=== PATIENT | male | born 1940 | race Caucasian/White ===

== ENCOUNTER 2017-07-07 10:09 | Emergency (ER) | payer OTHER ==
[~2017-07-07] VITALS: Ht 193 cm; Wt 99.8 kg
--- NOTE | 2017-07-07 10:34 | PHYS DOC ---
Adult General Chief Complaint Chief Complaint: ABSCESS HPI HPI Patient is a 76 year old male presents to the emergency department with complaints of right knee pain. Patient had right knee pain for 3 days. Patient states he was seen yesterday at the radiology of [place] where he had an ultrasound. It was reported that he has "a big acres cyst". Patient states he spoke with his primary care provider who referred him to orthopedics. Patient's states she called the orthopedic office yesterday evening and was unsuccessful in speaking with anyone. She reports today the patient has inability to stand secondary to pain and they're here seeking further evaluation. Review of Systems Review of Systems Constitutional: Denies fever or chills [] Eyes: Denies change in visual acuity, redness, or eye pain [] HENT: Denies nasal congestion or sore throat [] Respiratory: Denies cough or shortness of breath [] Cardiovascular: No additional information not addressed in HPI [] GI: Denies abdominal pain, nausea, vomiting, bloody stools or diarrhea [] : Denies dysuria or hematuria [] Musculoskeletal: Right knee pain Integument: Denies rash or skin lesions [] Neurologic: Denies headache, focal weakness or sensory changes [] Endocrine: Denies polyuria or polydipsia [] All other systems were reviewed and found to be within normal limits, except as documented in this note. Allergies Allergies Allergies Coded Allergies Type Severity Reaction Last Updated Verified morphine Adverse Reaction Intermediate severe vomiting 07/07/17 Yes Physical Exam Physical Exam Constitutional: Well developed, well nourished, no acute distress, non-toxic appearance. [] Neck: Normal range of motion, no tenderness, supple, no stridor. [] Cardiovascular:Heart rate regular rhythm, no murmur [] Lungs & Thorax: Bilateral breath sounds clear to auscultation [] Skin: Warm, dry, no erythema, no rash. [] Extremities: Right lower extremity: Right knee mild diffuse swelling, tender palpate posteriorly.No erythema, no warmth. Patient will allow for passive range of motion however he does have increase pain. Right hip right ankle exam unremarkable. Neurovascular intact distal. Neurologic: Alert and oriented X 3, normal motor function, normal sensory function, no focal deficits noted. [] Current Patient Data Vital Signs Vital Signs Date Time Temp Pulse Resp B/P (MAP) Pulse Ox O2 Delivery O2 Flow Rate FiO2 07/07/17 10:10 98.1 70 18 97 Room Air 98.1 EKG EKG [] Radiology/Procedures Radiology/Procedures [][facility] [address] [place] [address] IMAGING REPORT Signed PATIENT: GALO BOLANOS ACCOUNT: [id number] : 1940 LOCATION: ER AGE: 76 SEX: M EXAM STATUS: REG ER ORD. PHYSICIAN: MOLINA FRANKLIN APRN REASON: pain and swelling posterior knee PROCEDURE: VENOUS LOWER EXTREMITY RIGHT Indication: Pain and swelling to the right lower extremity. Grayscale, color-flow and duplex Doppler evaluation of the right lower extremity deep venous system was performed. There is no evidence of a right lower extremity DVT. The right lower extremity deep venous system demonstrates normal compressibility with normal response to augmentation and Valsalva. There does appear to be a popliteal cyst measuring 5.6 x 2.3 x 3.1 cm. Impression: 1. No evidence of right lower extremity DVT. Note is made of a popliteal cyst. DICTATED and SIGNED BY: FLAKITO DURAND MD DATE: 07/07/17 1110 CC: NON,STAFF; DAVID MONTANO MD; MOLINA FRANKLIN APRN ~ Course & Med Decision Making Course & Med Decision Making Pertinent Labs and Imaging studies reviewed. (See chart for details) []1120: Patient's case discussed with Dr. Babcock, on-call ortho. He recommends follow-up in the office for continued treatment of the chronic knee pain Dragon Disclaimer Dragon Disclaimer This electronic medical record was generated, in whole or in part, using a voice recognition dictation system. Departure Departure Impression: Primary Impression: Knee pain, chronic Additional Impression: Estrada's cyst of knee Disposition: 01 HOME, SELF-CARE Condition: STABLE Referrals: DAVID MONTANO MD (PCP) Patient Instructions: Knee Pain Additional Instructions: Use the walker for assistance with ambulation. Tylenol with codeine one tablet by mouth every 6 hours as needed for pain. Please follow-up with your orthopedic physician, call today Scripts Acetaminophen With Codeine (TYLENOL WITH CODEINE #3 TABLET) 1 Each Tablet 1 TAB PO PRN Q6HRS Y for PAIN, #20 TAB Prov: MOLINA FRANKLIN APRN 07/07/17 Problem Qualifiers Primary Impression: Knee pain, chronic Laterality: right Qualified Codes: M25.561 - Pain in right knee; G89.29 - Other chronic pain Additional Impression: Estrada's cyst of knee Laterality: right Qualified Codes: M71.21 - Synovial cyst of popliteal space [Estrada], right knee MOLINA FRANKLIN RUBY DEVELOPER Jul 07, 2017 10:34
--- NOTE | 2017-07-07 11:15 | RAD ---
Indication: Pain and swelling to the right lower extremity. Grayscale, color-flow and duplex Doppler evaluation of the right lower extremity deep venous system was performed. There is no evidence of a right lower extremity DVT. The right lower extremity deep venous system demonstrates normal compressibility with normal response to augmentation and Valsalva. There does appear to be a popliteal cyst measuring 5.6 x 2.3 x 3.1 cm. Impression: 1. No evidence of right lower extremity DVT. Note is made of a popliteal cyst.
[2017-07-07] MEDS ORDERED: ACET-704 PO (11:47)
[2017-07-07 11:50] VITALS: BP 128/62
== END 2017-07-07 12:10 | disposition home or self-care (01) ==
LOC: ER 10:09
DX: M71.21 Synovial cyst of popliteal space [Baker], right knee (principal); G89.29 Other chronic pain; Z88.5 Allergy status to narcotic agent
CPT/HCPCS: 93971; 99284-25

== ENCOUNTER → 2017-08-01 | Outpatient (CLI) | payer OTHER ==
[2017-08-01 10:01] LABS: ADD MAN DIFF? NO
[2017-08-01 10:11] LABS: BASO # 0.1 x10^3/uL (0.0-0.2); BASO % 1 % (0-3); EOS # 0.1 x10^3/uL (0.0-0.7); EOS % 1 % (0-3); HEMATOCRIT 39.8 % (39.0-53.0); HEMOGLOBIN 12.8 g/dL (13.0-17.5); LYMPH % 25 % (24-48); MEAN CORPUSCULAR HEMOGLOBIN 32 pg (25-35); MEAN CORPUSCULAR HGB CONC 32 g/dL (31-37); MEAN CORPUSCULAR VOLUME 99 fL (79-100); MONO # 1.2 x10^3/uL (0.0-1.1); MONO % 11 % (0-9); NEUT # 7.5 x10^3uL (1.8-7.7); NEUT % 63 % (31-73); PLATELET COUNT 226 x10^3/uL (140-400); RED BLOOD COUNT 4.04 x10^6/uL (4.30-5.70); RED CELL DISTRIBUTION WIDTH 14.5 % (11.5-14.5); WHITE BLOOD COUNT 11.9 x10^3/uL (4.0-11.0)
[2017-08-01 10:20] LABS: INR 3.2 (0.8-1.1); PARTIAL THROMBOPLASTIN TIME 37 SEC (24-38); PROTHROMBIN TIME PATIENT 30.6 SEC (11.7-14.0)
[2017-08-01 10:23] LABS: ALBUMIN 4.1 g/dL (3.4-5.0); ANION GAP 10 (6-14); BLOOD UREA NITROGEN 23 mg/dL (8-26); CARBON DIOXIDE 29 mmol/L (21-32); CHLORIDE 103 mmol/L (98-107); CREATININE 1.5 mg/dL (0.7-1.3); GFR 45.3; GLUCOSE 102 mg/dL (70-99); POTASSIUM 4.4 mmol/L (3.5-5.1); SODIUM 142 mmol/L (136-145)
[2017-08-01 11:12] LABS: SEDIMENTATION RATE 12 (0-15)
[2017-08-01 11:33] LABS: BILIRUBIN,URINE NEGATIVE (NEG); CLARITY,URINE CLEAR; COLOR,URINE YELLOW; GLUCOSE,URINE 100 mg/dL (NEG); NITRITE,URINE NEGATIVE (NEG); PROTEIN,URINE NEGATIVE (NEG-TRACE); UROBILINOGEN,URINE 0.2 mg/dL (0.2 mg/dL)
[2017-08-01 11:47] LABS: BACTERIA,URINE FEW /HPF (0-FEW); HYALINE CASTS, URINE OCCASIONAL /HPF; RBC,URINE 0 /HPF (0-2); SQUAMOUS EPITHELIAL CELL,UR FEW /LPF
[2017-08-02 00:12] LABS: MRSA BY PCR Negative (Negative)
== END | disposition home or self-care (01) ==
LOC: SURGPAT 14:13
DX: Z01.818 Encounter for other preprocedural examination (principal); I10 Essential (primary) hypertension; Z96.651 Presence of right artificial knee joint
CPT/HCPCS: 36415; 71046; 80048; 81001; 82040; 82306; 85025; 85610; 85651; 85730; 87641

== ENCOUNTER 2017-08-16 08:43 | Inpatient (IN) | payer OTHER ==
[2017-08-16] MEDS: TRANEXAMIC ACID 1,000 MG in IV NS 50ML -- 2ND BAG INJ (08:00)
[~2017-08-16 08:43] MED LIST: LIDOCAINE 1% PF 2 ML VIAL. ID; ONDANSETRON PF 4 MG/2 ML VIAL. IV; PROCHLORPERAZINE 10 MG/2 ML VIAL. IV; fentaNYL PF VIAL 100 MCG/2 ML VIAL IV
[2017-08-16] MEDS: IV RINGERS,LACTATED 1000ML 1,000 ML IV (09:25)
[2017-08-16] MEDS: ACETAMINOPHEN 500 MG TABLET PO (09:26)
[2017-08-16 09:52] LABS: INR 1.6 (0.8-1.1); PROTHROMBIN TIME PATIENT 17.8 SEC (11.7-14.0)
[2017-08-16] MEDS ORDERED: fentaNYL PF VIAL 100 MCG/2 ML VIAL (10:22)
[2017-08-16] MEDS ORDERED: PHENYLEPHRINE in 0.9% NACL PF 1 MG/10 ML SYRINGE. IV (10:24)
[2017-08-16] MEDS ORDERED: DEXAMETHASONE SOD PHOS 20 MG/5 ML VIAL. (10:24)
[2017-08-16] MEDS ORDERED: FAMOTIDINE 20 MG/2 ML VIAL (10:24)
[2017-08-16] MEDS ORDERED: PROPOFOL 20 ML IV (10:24)
[2017-08-16] MEDS ORDERED: ONDANSETRON PF 4 MG/2 ML VIAL. (10:24)
[2017-08-16] MEDS ORDERED: SEVOFLURANE 61 TO 120 MINUTES. IH (10:24)
[2017-08-16] MEDS ORDERED: LIDOCAINE 1% PF 5 ML VIAL. (10:24)
[2017-08-16] MEDS: TRANEXAMIC ACID 1,000 MG in IV NS 50ML -- 1ST BAG INJ (11:35)
[2017-08-16] MEDS: TOBRAMYCIN POWDER 1.2 GM VIAL. (11:50)
[2017-08-16] MEDS: MORPHINE SULFATE 5 MG, KETOROLAC 30 MG, ROPIVacaine 0.5% PF 60 ML, EPINEPHrine 0.5 MG i... INT ART (11:50)
[2017-08-16] MEDS: VANCOMYCIN 1 GM VIAL. (11:50)
[2017-08-16] MEDS ORDERED: KETOROLAC 30 MG/ML INJ FOR OR. INJ (12:37)
[2017-08-16] MEDS ORDERED: traMADol 50 MG TABLET PO ×2 (13:30)
[2017-08-16] MEDS ORDERED: diphenhydrAMINE 50 MG/ML VIAL IV (13:30)
[2017-08-16] MEDS ORDERED: PROCHLORPERAZINE 5 MG TABLET. PO (13:30)
[2017-08-16] MEDS ORDERED: ZOLPIDEM 5 MG TABLET. PO (13:30)
[2017-08-16] MEDS ORDERED: DEXTROSE 50% 25 GM / 50ML DISP.SYRIN. IV (13:30)
[2017-08-16] MEDS ORDERED: fentaNYL PF VIAL 100 MCG/2 ML VIAL IV ×2 (13:30)
[2017-08-16] MEDS ORDERED: oxyCODONE/APAP 5/325 1 TAB TABLET PO (13:30)
[2017-08-16] MEDS ORDERED: PROCHLORPERAZINE 10 MG/2 ML VIAL. IV (13:30)
[2017-08-16] MEDS ORDERED: ACETAMINOPHEN 325 MG TABLET. PO (13:30)
[2017-08-16] MEDS ORDERED: METOCLOPRAMIDE HCL 10 MG/2 ML VIAL. IV (13:30)
[2017-08-16] MEDS ORDERED: oxyCODONE/APAP 7.5/325 1 TAB TABLET PO (13:30)
[2017-08-16] MEDS: fentaNYL PF VIAL 100 MCG/2 ML VIAL IV ×2 (14:17→15:49)
[2017-08-16] MEDS: WARFARIN 4 MG TABLET. PO (16:57)
[2017-08-16] MEDS: IV DEXTROSE 5 %-0.45 % NACL 1,000 ML IV ×2 (16:57→23:28)
[2017-08-16] MEDS: FERROUS SULFATE 325 MG TABLET. PO (16:58)
[2017-08-16] MEDS: KETOROLAC 30 MG, BUPIVACAINE MPF 0.25% 20 ML, EPINEPHrine 0.5 MG in TOTAL VOLUME SYRING... INT ART (18:39)
[2017-08-16] MEDS: CELECOXIB 200 MG CAPSULE. PO (20:45)
[2017-08-16] MEDS: ATORVASTATIN CALCIUM 20 MG TABLET PO (20:45)
[2017-08-16] MEDS: NIACIN ER 500 MG TABLET.ER PO (20:46)
[2017-08-16] MEDS: METOPROLOL TART IMMED RELEASE 25 MG TABLET. PO (20:46)
[2017-08-17] MEDS: KETOROLAC 30 MG, BUPIVACAINE MPF 0.25% 20 ML, EPINEPHrine 0.5 MG in TOTAL VOLUME SYRING... INT ART (05:04)
[2017-08-17 05:51] LABS: HEMATOCRIT 29.5 % (39.0-53.0); HEMOGLOBIN 9.8 g/dL (13.0-17.5); MEAN CORPUSCULAR HEMOGLOBIN 32 pg (25-35); MEAN CORPUSCULAR HGB CONC 33 g/dL (31-37); MEAN CORPUSCULAR VOLUME 96 fL (79-100); PLATELET COUNT 159 x10^3/uL (140-400); RED BLOOD COUNT 3.09 x10^6/uL (4.30-5.70); RED CELL DISTRIBUTION WIDTH 13.6 % (11.5-14.5); WHITE BLOOD COUNT 17.6 x10^3/uL (4.0-11.0)
[2017-08-17] MEDS ORDERED: MAGNESIUM HYDROXIDE 2,400 MG/30 ML ORAL.SUSP. PO (06:00)
[2017-08-17 06:03] LABS: INR 1.6 (0.8-1.1); PROTHROMBIN TIME PATIENT 17.8 SEC (11.7-14.0)
[2017-08-17] MEDS: MULTIVITAMIN with MINERAL TABLET. PO (07:56)
[2017-08-17] MEDS: CELECOXIB 200 MG CAPSULE. PO ×2 (07:56→20:59)
[2017-08-17] MEDS: FERROUS SULFATE 325 MG TABLET. PO ×2 (07:56→17:02)
[2017-08-17] MEDS: SENNOSIDES/DOCUSATE 8.6/50MG TABLET. PO (07:57)
[2017-08-17] MEDS: METOPROLOL TART IMMED RELEASE 25 MG TABLET. PO ×2 (07:59→20:59)
[2017-08-17] MEDS: HYDROcodone/APAP 7.5/325MG 1 TAB TABLET PO ×3 (08:00→21:05)
[2017-08-17] MEDS ORDERED: BISACODYL 10 MG SUPP.RECT. PR (16:00)
[2017-08-17] MEDS: WARFARIN 4 MG TABLET. PO (17:02)
[2017-08-17] MEDS: 0.9 % SODIUM CHLORIDE 10 ML DISP.SYRIN. IV (20:58)
[2017-08-17] MEDS: NIACIN ER 500 MG TABLET.ER PO (20:59)
[2017-08-17] MEDS: ATORVASTATIN CALCIUM 20 MG TABLET PO (20:59)
[2017-08-18] MEDS: HYDROcodone/APAP 7.5/325MG 1 TAB TABLET PO ×4 (04:03→21:00)
[2017-08-18 05:32] LABS: HEMATOCRIT 26.9 % (39.0-53.0); HEMOGLOBIN 8.8 g/dL (13.0-17.5); MEAN CORPUSCULAR HGB CONC 33 g/dL (31-37)
[2017-08-18 05:40] LABS: INR 2.1 (0.8-1.1); PROTHROMBIN TIME PATIENT 22.1 SEC (11.7-14.0)
[2017-08-18] MEDS: SENNOSIDES/DOCUSATE 8.6/50MG TABLET. PO (08:05)
[2017-08-18] MEDS: CELECOXIB 200 MG CAPSULE. PO ×2 (08:05→21:00)
[2017-08-18] MEDS: FERROUS SULFATE 325 MG TABLET. PO ×2 (08:05→17:03)
[2017-08-18] MEDS: METOPROLOL TART IMMED RELEASE 25 MG TABLET. PO ×2 (08:05→21:00)
[2017-08-18] MEDS: MULTIVITAMIN with MINERAL TABLET. PO (08:07)
[2017-08-18] MEDS: WARFARIN 4 MG TABLET. PO (17:03)
[2017-08-18] MEDS: ATORVASTATIN CALCIUM 20 MG TABLET PO (21:00)
[2017-08-18] MEDS: NIACIN ER 500 MG TABLET.ER PO (21:00)
[2017-08-19 06:28] LABS: PROTHROMBIN TIME PATIENT 21.3 SEC (11.7-14.0)
[2017-08-19 07:17] LABS: HEMATOCRIT 28.3 % (39.0-53.0); HEMOGLOBIN 9.3 g/dL (13.0-17.5); MEAN CORPUSCULAR HGB CONC 33 g/dL (31-37)
[2017-08-19] MEDS: CELECOXIB 200 MG CAPSULE. PO ×2 (08:25→21:06)
[2017-08-19] MEDS: FERROUS SULFATE 325 MG TABLET. PO ×2 (08:25→16:16)
[2017-08-19] MEDS: SENNOSIDES/DOCUSATE 8.6/50MG TABLET. PO (08:25)
[2017-08-19] MEDS: MULTIVITAMIN with MINERAL TABLET. PO (08:25)
[2017-08-19] MEDS: METOPROLOL TART IMMED RELEASE 25 MG TABLET. PO ×2 (08:29→21:06)
[2017-08-19] MEDS: HYDROcodone/APAP 7.5/325MG 1 TAB TABLET PO ×2 (08:32→14:14)
[2017-08-19 10:02] LABS: POC GLUCOSE 107 mg/dL (70-99)
[2017-08-19] MEDS: IV NORMAL SALINE 1000ML BAG 1,000 ML IV (16:16)
[2017-08-19] MEDS: WARFARIN 4 MG TABLET. PO (16:17)
[2017-08-19 16:27] LABS: ANION GAP 3 (6-14); BLOOD UREA NITROGEN 38 mg/dL (8-26); CALCIUM 8.4 mg/dL (8.5-10.1); CARBON DIOXIDE 31 mmol/L (21-32); CHLORIDE 105 mmol/L (98-107); CREATININE 1.5 mg/dL (0.7-1.3); GFR 45.3; GLUCOSE 99 mg/dL (70-99); MAGNESIUM 1.9 mg/dL (1.8-2.4); POTASSIUM 4.6 mmol/L (3.5-5.1); SODIUM 139 mmol/L (136-145)
[2017-08-19 16:41] LABS: NT-PRO BNP 1270 pg/mL (0-449)
[2017-08-19 17:32] LABS: BILIRUBIN,URINE NEGATIVE (NEG); CLARITY,URINE CLEAR; COLOR,URINE YELLOW; GLUCOSE,URINE NEGATIVE (NEG); NITRITE,URINE NEGATIVE (NEG); PH,URINE 5.5; PROTEIN,URINE NEGATIVE (NEG-TRACE); UROBILINOGEN,URINE 0.2 mg/dL (0.2 mg/dL)
[2017-08-19 17:45] LABS: BACTERIA,URINE 0 /HPF (0-FEW); RBC,URINE 0 /HPF (0-2); SQUAMOUS EPITHELIAL CELL,UR OCC /LPF; WBC,URINE OCC /HPF (0-4)
[2017-08-19] MEDS: HYDROcodone/APAP 10/325 1 TAB TABLET PO (21:05)
[2017-08-19] MEDS: ATORVASTATIN CALCIUM 20 MG TABLET PO (21:05)
[2017-08-19] MEDS: NIACIN ER 500 MG TABLET.ER PO (21:08)
[2017-08-20] MEDS: IV NORMAL SALINE 1000ML BAG 1,000 ML IV ×2 (05:54→16:13)
[2017-08-20 07:15] LABS: INR 2.3 (0.8-1.1); PROTHROMBIN TIME PATIENT 23.7 SEC (11.7-14.0)
[2017-08-20 08:40] LABS: ANION GAP 4 (6-14); BLOOD UREA NITROGEN 33 mg/dL (8-26); C-REACTIVE PROTEIN 52.6 mg/L (0-3.3); CALCIUM 8.9 mg/dL (8.5-10.1); CARBON DIOXIDE 29 mmol/L (21-32); CHLORIDE 106 mmol/L (98-107); CREATININE 1.4 mg/dL (0.7-1.3); GLUCOSE 103 mg/dL (70-99); POTASSIUM 4.8 mmol/L (3.5-5.1); SODIUM 139 mmol/L (136-145)
[2017-08-20 08:41] LABS: HEMATOCRIT 27.8 % (39.0-53.0); HEMOGLOBIN 9.4 g/dL (13.0-17.5); MEAN CORPUSCULAR HEMOGLOBIN 33 pg (25-35); MEAN CORPUSCULAR HGB CONC 34 g/dL (31-37); MEAN CORPUSCULAR VOLUME 97 fL (79-100); PLATELET COUNT 162 x10^3/uL (140-400); RED BLOOD COUNT 2.87 x10^6/uL (4.30-5.70); WHITE BLOOD COUNT 9.6 x10^3/uL (4.0-11.0)
[2017-08-20 09:46] LABS: SEDIMENTATION RATE 31 (0-15)
[2017-08-20] MEDS: CALCIUM CARBONATE 500 MG TAB.CHEW PO (10:06)
[2017-08-20] MEDS: SENNOSIDES/DOCUSATE 8.6/50MG TABLET. PO (10:06)
[2017-08-20] MEDS: CELECOXIB 200 MG CAPSULE. PO ×2 (10:06→20:24)
[2017-08-20] MEDS: METOPROLOL TART IMMED RELEASE 25 MG TABLET. PO ×2 (10:10→20:23)
[2017-08-20] MEDS: MULTIVITAMIN with MINERAL TABLET. PO (10:11)
[2017-08-20] MEDS: FERROUS SULFATE 325 MG TABLET. PO ×2 (10:11→17:38)
[2017-08-20] MEDS: HYDROcodone/APAP 7.5/325MG 1 TAB TABLET PO (10:13)
[2017-08-20] MEDS: WARFARIN 4 MG TABLET. PO (16:14)
[2017-08-20] MEDS: ATORVASTATIN CALCIUM 20 MG TABLET PO (20:24)
[2017-08-20] MEDS: NIACIN ER 500 MG TABLET.ER PO (20:24)
[2017-08-21] MEDS: IV NORMAL SALINE 1000ML BAG 1,000 ML IV (01:53)
[2017-08-21 06:10] LABS: INR 2.4 (0.8-1.1); PROTHROMBIN TIME PATIENT 24.4 SEC (11.7-14.0)
[2017-08-21] MEDS: MULTIVITAMIN with MINERAL TABLET. PO (08:23)
[2017-08-21] MEDS: METOPROLOL TART IMMED RELEASE 25 MG TABLET. PO (08:23)
[2017-08-21] MEDS: FERROUS SULFATE 325 MG TABLET. PO (08:23)
[2017-08-21] MEDS: CELECOXIB 200 MG CAPSULE. PO (08:23)
[2017-08-21] MEDS: SENNOSIDES/DOCUSATE 8.6/50MG TABLET. PO (08:23)
[2017-08-21] MEDS: CALCIUM CARBONATE 500 MG TAB.CHEW PO (08:23)
== END 2017-08-21 14:45 | disposition home or self-care (01) | DRG 470 ==
LOC: OPSVCIP 08:43 → 2 NORTH 08-19 10:32 → 4 SOUTHWST 16:14
PROC: 0SRC0J9 Replacement of Right Knee Joint with Synthetic Substitute, Cemented, Open Approach (ICD-10-PCS; principal; 2017-08-16 11:00)
DX: M17.0 Bilateral primary osteoarthritis of knee (principal); E86.0 Dehydration; F03.90 Unspecified dementia, unspecified severity, without behavioral disturbance, psychotic disturbance, mood disturbance, and anxiety; E78.5 Hyperlipidemia, unspecified; I12.9 Hypertensive chronic kidney disease with stage 1 through stage 4 chronic kidney disease, or unspecified chronic kidney disease; I25.10 Atherosclerotic heart disease of native coronary artery without angina pectoris; M71.20 Synovial cyst of popliteal space [Baker], unspecified knee; Z96.652 Presence of left artificial knee joint; N18.9 Chronic kidney disease, unspecified; Z82.49 Family history of ischemic heart disease and other diseases of the circulatory system; Z83.3 Family history of diabetes mellitus; Z86.73 Personal history of transient ischemic attack (TIA), and cerebral infarction without residual deficits; Z95.2 Presence of prosthetic heart valve; Z88.8 Allergy status to other drugs, medicaments and biological substances
CPT/HCPCS: 36415; 71045; 73560; 80048; 81001; 82962; 83735; 83880; 84300; 85014; 85018; 85027; 85610; 85651; 86140; 86850; 86900; 86901; 88305; 88311; 97110-GP; 97116-GP; 97150-GO; 97150-GP; 97162-GP; 97166-GO; 97530-GP; C1713; J0171; J0690; J1100; J1885; J2270; J2370; J2405; J2704; J2795; J3010; J3260; J3370; J3490; J7030; J7120; S0028

== ENCOUNTER 2018-01-09 17:17 | Emergency (ER) | payer OTHER ==
[2018-01-09] MEDS: LIDOCAINE/EPI/TETRACAINE TOPICAL GEL 3 ML. TP (18:19)
[2018-01-09] MEDS: DIPHTH,PERTUSS(ACELL),TET TOX 0.5 ML DISP.SYRIN. VAX IM (18:20)
== END 2018-01-09 19:36 | disposition home or self-care (01) ==
LOC: ER 19:36
DX: S01.01XA Laceration without foreign body of scalp, initial encounter (principal); I48.91 Unspecified atrial fibrillation; E78.00 Pure hypercholesterolemia, unspecified; Z90.49 Acquired absence of other specified parts of digestive tract; Z88.5 Allergy status to narcotic agent; Z91.048 Other nonmedicinal substance allergy status; W22.8XXA Striking against or struck by other objects, initial encounter; Y93.89 Activity, other specified; Y92.89 Other specified places as the place of occurrence of the external cause; Y99.8 Other external cause status
CPT/HCPCS: 12001; 70450; 90471; 90715; 99284

== ENCOUNTER → 2018-03-14 | Outpatient (CLI) | payer OTHER ==
[2018-01-09 18:09] VITALS: BP 137/66
[~2018-03-14] MED LIST changes: +ACET-704 PO; +ATOR20TA PO; +CELE200C PO; +FERR325T14 PO; -LIDOCAINE 1% PF 2 ML VIAL. ID; +METO25TA4 PO; +NIAC500T8 PO; -ONDANSETRON PF 4 MG/2 ML VIAL. IV; -PROCHLORPERAZINE 10 MG/2 ML VIAL. IV; +WARF4TAB64 PO; -fentaNYL PF VIAL 100 MCG/2 ML VIAL IV
[2018-03-14 13:54] LABS: BILIRUBIN,URINE NEGATIVE (NEG); CLARITY,URINE CLEAR; COLOR,URINE YELLOW; NITRITE,URINE NEGATIVE (NEG); PROTEIN,URINE NEGATIVE (NEG-TRACE); UROBILINOGEN,URINE 0.2 mg/dL (0.2 mg/dL)
--- NOTE | 2018-03-14 14:02 | EKG ---
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
[2018-03-14 14:29] LABS: BACTERIA,URINE 0 /HPF (0-FEW); RBC,URINE 0 /HPF (0-2); SQUAMOUS EPITHELIAL CELL,UR FEW /LPF
[2018-03-14 14:30] LABS: HYALINE CASTS, URINE FEW /HPF
--- NOTE | 2018-03-14 14:30 | RAD ---
EXAM: Chest, 2 views. HISTORY: Pain. Preoperative evaluation. Aneurysm. COMPARISON: 08/19/2017 FINDINGS: Frontal and lateral views of the chest are obtained. There is no infiltrate, pleural effusion or pneumothorax. The heart is normal in size. There is evidence of median sternotomy and aortic valve surgery. There is a cardiac pacemaker with leads in expected position. There are cholecystectomy clips. IMPRESSION: No acute pulmonary finding. Electronically signed by: Joyce Olivier MD (03/14/2018 2:26 PM) [place] [id number]
== END | disposition home or self-care (01) ==
LOC: SURGPAT 12:52
PROVIDERS: ATTEND Orthopaedic Surgery
DX: Z01.818 Encounter for other preprocedural examination (principal); I12.9 Hypertensive chronic kidney disease with stage 1 through stage 4 chronic kidney disease, or unspecified chronic kidney disease; N18.9 Chronic kidney disease, unspecified; E78.5 Hyperlipidemia, unspecified; E78.00 Pure hypercholesterolemia, unspecified; I25.10 Atherosclerotic heart disease of native coronary artery without angina pectoris; Z96.653 Presence of artificial knee joint, bilateral; Z90.49 Acquired absence of other specified parts of digestive tract; Z82.49 Family history of ischemic heart disease and other diseases of the circulatory system; Z83.3 Family history of diabetes mellitus
CPT/HCPCS: 36415; 71046; 81001; 87086; 87641; 93005

== ENCOUNTER 2018-03-28 07:10 | Inpatient (IN) | payer OTHER ==
[2018-03-28] VITALS (9 sets, daily range): BP systolic 119–139; BP diastolic 55–70
[~2018-03-28] VITALS: Ht 190.5 cm; Wt 99.3 kg
[~2018-03-28 07:10] MED LIST changes: +ACETAMINOPHEN 500 MG TABLET PO ONE; +DEXAMETHASONE SOD PHOS 20 MG/5 ML VIAL. ONE; +HYDROcodone/APAP 7.5/325MG 1 TAB TABLET PO PRN; +HYDROmorphone 2 MG/ML VIAL IV PRN; +IV RINGERS,LACTATED 1000ML 1,000 ML IV SCH; +KETOROLAC 30 MG/ML INJ FOR OR. INJ ONE; +KETOROLAC 30MG VIAL 30 MG, ROPIVacaine 0.5% PF 60 ML, EPINEPHrine 0.5 MG in IV NORMAL S... INT ART ONE; +LIDOCAINE 1% PF 2 ML VIAL. ID PRN; +MORPHINE SULFATE 2 MG/ML VIAL. IV PRN; +MORPHINE SULFATE 5 MG, KETOROLAC 30MG VIAL 30 MG, ROPIVacaine 0.5% PF 60 ML, EPINEPHrin... INT ART ONE; +ONDANSETRON PF 4 MG/2 ML VIAL. IV PRN; +ONDANSETRON PF 4 MG/2 ML VIAL. ONE; +PROCHLORPERAZINE 10 MG/2 ML VIAL. IV PRN; +PROPOFOL 20 ML IV ONE; +TOBRAMYCIN POWDER 1.2 GM VIAL. ONE; +TRANEXAMIC ACID 1,000 MG in IV NS 50ML -- 1ST BAG INJ ONE; +VANCOMYCIN 1 GM VIAL. ONE; +fentaNYL PF VIAL 100 MCG/2 ML VIAL IV PRN; +fentaNYL PF VIAL 100 MCG/2 ML VIAL ONE
--- NOTE | 2018-03-28 07:30 | PDOC1 ---
History and Physical Date of Admission Date of Admission DATE: 03/28/18 TIME: 07:21 Identification/Chief Complaint Chief Complaint left knee pain Source Source: Chart review, Patient History of Present Illness History of Present Illness 77 year old with left knee arthritis and pain, unrelieved with nonoperative treatment. He had right TKA in July and that is now his good knee. The left knee is causing pain, and difficulty walking, and feels like it gives out. He has been using a cane. Previously he had been having some issues regularly is blood pressure but it is now regulated. 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 (sp)) Social History Smoke: No ALCOHOL: none Drugs: None Current Problem List Problem List osteoarthritis left knee Current Medications Current Medications Current Medications Morphine Sulfate 5 mg/Ketorolac Tromethamine 30 mg/Ropivacaine 60 ml/ Epinephrine HCl 0.5 mg/Sodium Chloride 100 ml @ 100 mls/hr 1X ONCE INT ART ; Start 03/28/18 at 06:00; Stop 03/28/18 at 06:55; Status DC Acetaminophen/ Hydrocodone Bitart (Lortab 7.5/325) 2 tab 1X PREOP PRN PO PRIOR TO PROCEDURE; Start 03/28/18 at 06:00; Stop 03/28/18 at 18:00 Cefazolin Sodium/ Dextrose 50 ml @ 100 mls/hr 1X PREOP PRN IV PRIOR TO PROCEDURE; Start 03/28/18 at 06:00; Stop 03/28/18 at 18:00 Tranexamic Acid 1000 mg/Sodium Chloride 60 ml @ 60 mls/hr 1X PERIOP ONCE INJ ; Start 03/28/18 at 06:00; Stop 03/28/18 at 06:59; Status DC Tranexamic Acid 1000 mg/Sodium Chloride 60 ml @ 60 mls/hr 1X PERIOP ONCE INJ ; Start 03/28/18 at 08:00; Stop 03/28/18 at 08:59 Ondansetron HCl (Zofran) 4 mg PRN Q6HRS PRN IV NAUSEA/VOMITING; Start 03/28/18 at 07:00; Stop 03/29/18 at 06:59 Fentanyl Citrate (Fentanyl 2ml Vial) 25 mcg PRN Q5MIN PRN IV MILD PAIN; Start 03/28/18 at 07:00; Stop 03/29/18 at 06:59 Fentanyl Citrate (Fentanyl 2ml Vial) 50 mcg PRN Q5MIN PRN IV MODERATE TO SEVERE PAIN; Start 03/28/18 at 07:00; Stop 03/29/18 at 06:59 Morphine Sulfate (Morphine Sulfate) 1 mg PRN Q10MIN PRN IV SEVERE PAIN; Start 03/28/18 at 07:00; Stop 03/29/18 at 06:59 Ringer's Solution 1,000 ml @ 30 mls/hr Q24H IV Last administered on 03/28/18at 06:58; Start 03/28/18 at 07:00; Stop 03/28/18 at 18:59 Lidocaine HCl (Xylocaine-Mpf 1% 2ml Vial) 2 ml PRN 1X PRN ID PRIOR TO IV START ; Start 03/28/18 at 07:00; Stop 03/29/18 at 06:59 Hydromorphone HCl (Dilaudid) 0.5 mg PRN Q10MIN PRN IV SEV PAIN, Second choice; Start 03/28/18 at 07:00; Stop 03/29/18 at 06:59 Prochlorperazine Edisylate (Compazine) 5 mg PACU PRN PRN IV NAUSEA, MRX1; Start 03/28/18 at 07:00; Stop 03/29/18 at 06:59 Acetaminophen (Tylenol) 500 mg STK-MED ONCE PO ; Start 03/28/18 at 06:08; Stop 03/28/18 at 06:09; Status DC Acetaminophen (Tylenol) 1,000 mg 1X ONCE PO Last administered on 03/28/18at 06: 57; Start 03/28/18 at 06:30; Stop 03/28/18 at 06:31; Status DC Vancomycin HCl (Vancomycin) 1 gm STK-MED ONCE .ROUTE ; Start 03/28/18 at 05:28; Stop 03/28/18 at 06:29; Status DC Tobramycin Sulfate (Tobramycin Powder) 1.2 gm STK-MED ONCE .ROUTE ; Start at 05:29; Stop 03/28/18 at 06:30; Status DC Ketorolac Tromethamine 30 mg/Ropivacaine 60 ml/Epinephrine HCl 0.5 mg/Sodium Chloride 99.5 ml @ 99.5 mls/hr 1X ONCE INT ART ; Start 03/28/18 at 07:00; Stop 03/28/18 at 07:59 Fentanyl Citrate (Fentanyl 2ml Vial) 100 mcg STK-MED ONCE .ROUTE ; Start at 06:57; Stop 03/28/18 at 06:58; Status DC Propofol 20 ml @ As Directed STK-MED ONCE IV ; Start 03/28/18 at 06:58; Stop 06/04 at 06:59; Status DC Dexamethasone Sodium Phosphate (Decadron) 20 mg STK-MED ONCE .ROUTE ; Start 06/04 at 06:58; Stop 03/28/18 at 06:59; Status DC Ondansetron HCl (Zofran) 4 mg STK-MED ONCE .ROUTE ; Start 03/28/18 at 06:58; Stop 03/28/18 at 06:59; Status DC Ketorolac Tromethamine (Toradol For Or Only) 30 mg STK-MED ONCE INJ ; Start 06/04 at 06:58; Stop 03/28/18 at 06:59; Status DC Active Scripts Active Reported Ferrous Sulfate 325 Mg Tablet 325 Mg PO DAILY Warfarin Sodium 4 Mg Tablet 4 Mg PO UD Lipitor (Atorvastatin Calcium) 20 Mg Tablet 20 Mg PO HS Allergies Allergies: Coded Allergies: grass pollen (Verified Allergy, Intermediate, 03/28/18) pollen extracts (Verified Allergy, Intermediate, 03/28/18) morphine (Verified Adverse Reaction, Intermediate, severe vomiting, ) oxycodone (Verified Adverse Reaction, Mild, 03/28/18) "makes me feel weird" ROS General: No: Night Sweats PSYCHOLOGICAL ROS: No: Anxiety Eyes: No Double vision HEENT: No: Heacaches Respiratory: No: Cough, Shortness of breath Cardiovascular: No Chest Pain Gastrointestinal: No Nausea, No Vomiting, No Diarrhea Genitourinary: No Dysuria Musculoskeletal: Yes Joint Pain, Yes Joint Stiffness Neurological: Yes Gait Disturbance; No Behavorial Changes Physical Exam General: Alert, Cooperative HEENT: Atraumatic Lungs: Normal air movement Heart: RRR Abdomen: Soft, No tenderness Extremities: No cyanosis, Other (left knee varus alignment, no masses, no effusion. Tenderness on the medial lateral joint lines. Range of motion 3125 degrees. Crepitus with range of motion and pain at the extremes of motion. Stable to varus and valgus stress. Normal strength. Skin over the knee is normal. The lower extremity shows some chronic discoloration from venous stasis disease. There is a leg length discrepancy due to the prior right total knee which is no longer in varus, and is now the longer leg.) Skin: No breakdown, No significant lesion Neuro: Normal speech, Sensation intact Psych/Mental Status: Mental status NL Vitals Vitals Vital Signs Date Time Temp Pulse Resp B/P (MAP) Pulse Ox O2 Delivery O2 Flow Rate FiO2 03/28/18 06:29 97.8 63 20 99 97.8 03/28/18 06:04 173/86 Room Air VTE Prophylaxis Ordered VTE Prophylaxis Devices: Yes VTE Pharmacological Prophylaxi: Yes Assessment/Plan Assessment/Plan We discussed the risks and benefits of total knee replacement including bleeding , infection, postoperative stiffness, instability, periprosthetic fracture, DVT , and PE. He stated understanding of the risks, benefits, and alternatives and would like to proceed. One of his main concerns is leg length, and I told him I can't promise that they will be equal but will certainly the left leg will be longer once the varus alignment is corrected, and likely he will be close to the same length. He would like to proceed which should help his gait, and pain level in that left knee, and hopefully get him off the cane and able to walk for exercise which would benefit his overall health and cardiac status. He is in agreement to proceed and all of his questions were answered. I reviewed his July admission and he was given tranexamic acid intraoperatively for bleeding control, but only a single dose due to his renal disease. Also, we will avoid NSAIDs due to creatinine 1.4. ARGELIA THOMPSON MD Mar 28, 2018 07:30
[2018-03-28] MEDS ORDERED: PHENYLEPHRINE in 0.9% NACL PF 1 MG/10 ML SYRINGE. IV ONE (07:45)
[2018-03-28] MEDS ORDERED: TRANEXAMIC ACID 1,000 MG in IV NS 50ML -- 2ND BAG INJ ONE (08:00)
[2018-03-28] MEDS: ROPIVACAINE 0.5% INT ART ONE ×2 (08:32→08:59)
[2018-03-28] MEDS: EPINEPHRINE INT ART ONE ×2 (08:32→08:59)
[2018-03-28] MEDS: NORMAL SALINE INT ART ONE ×2 (08:32→08:59)
--- NOTE | 2018-03-28 09:52 | PDOC4 ---
Operative Note Operative Note Date of Procedure: March 28, 2018 Pre-Op Diagnosis: Osteoarthritis left knee Post-Op Diagnosis: Osteoarthritis left knee Procedure: left total knee arthroplasty Surgeon: Argelia Liu MD Electronic Technologist: Zina Atkinson PA-C Anesthesia: General EBL: 100 mL Specimens Obtained: left knee bone and soft tissue Complications: none Implant Company: [email or web address] Drains: hemovac plus pain catheter Tourniquet time: 58 Minutes Tourniquet Pressure: 350 mm Hg Indications for Procedure: Arthritis pain unrelieved by nonoperative management. Findings: Severe osteoarthritis with bone on bone contact medially with full thickness cartilage loss in the patellofemoral and lateral compartments Implants used: Size 7 left bicruciate stabilized Journey II BCS cobalt chrome femoral component, size 7 left Journey nonporous tibial baseplate, size 7 -8 15 mm left Journey II BCS XLPE articular insert, 38 mm oval Kylah II resurfacing patellar component Procedure in Detail: The patient was identified in the preoperative holding area, and the correct left lower extremity was marked by me. The patient was taken to the operating room where the patient was anesthetized by the Department of Anesthesia. Preoperative antibiotics were given intravenously. Tranexamic acid 1 g was given intravenously for intraoperative hemostasis. A "time-out" procedure was performed. The patient was positioned supine on the operative table with a tourniquet on the upper left thigh. The left lower limb was thoroughly prepped and draped in sterile fashion. An impervious stockinet and adhesive drape were used such that the skin was entirely covered. An Pineda leg miller was used. The operating team wore personal exhaust-ventilated hoods. The limb was elevated to exsanguinate it, and the tourniquet was inflated. A midline skin incision was made with a scalpel using the patella and tibial tubercle as landmarks. Electrocautery was used for hemostasis. My assistant hvac mechanic used rake retractors. A medial parapatellar arthrotomy incision was used with extension into the distal quadriceps tendon. The patella was retracted laterally and Hohmann retractors were now used by my assistant hvac mechanic. Excess synovium, the menisci, and the cruciate ligaments were resected sharply. The patella was assessed and excess synovium and osteophytes around the patellar articulation were removed. The patella was measured with a caliper, cut freehand with a saw using caliper measurements, sized, and then drilled for an oval three-pegged patella component. Periarticular anesthetic injection was used in the suprapatellar pouch and distal quadriceps muscle. Whitesides's line and the transepicondylar axis were marked on the femur. An intra-medullary 5 degree cutting guide was pinned to the femur, and a distal femoral cut was made with an oscillating saw. No additional distal femoral resection was required. My assistant hvac mechanic held Hohmann retractors and an [facility] retractor to protect the medial and lateral collateral ligaments, the patellar tendon, the skin and the other soft tissues. A posterior referencing guide was applied with external rotation of 4 to match Whitesides line. A 5-in-1 Journey II cutting guide was then applied and pinned to the femur. The posterior, anterior, and all chamfer cuts were made with the oscillating saw. An extramedullary guide was pinned to the tibia and rotational alignment and the planned resection thickness assessed. An external alignment artur was used to verify the planned cut in the varus-valgus plane and regarding posterior slope referencing the tibial tubercle, the tibial shaft, the ankle joint, and the second metatarsal. The upper tibia was cut made with an oscillating saw. My assistant hvac mechanic held Hohmann retractors and a posterior cruciate ligament retractor to protect the medial and lateral collateral ligaments, the patellar tendon, the skin, the peroneal nerve and the other soft tissues. The upper tibia was sized with a trial baseplate. The posterior compartment was cleared of osteophytes and loose bodies. Periarticular anesthetic injection was used in the posterior compartment. The box cut for a posterior stabilized component was made. A preliminary reduction was performed with a trial femur, trial tibial baseplate and trial polyethylene. Soft-tissue balancing was now performed, and extension and rotation of the alignments was checked using a guide artur in the tibial trial and a guide pin in the femur. A medial release was required, using a 10 blade scalpel, and a Lee elevator to elevate the medial structures from the upper medial tibia. The stability was assessed using different thicknesses of tibial articular surface to find satisfactory stability and good range of motion. The rotation of the tibial component was marked on the upper tibia. Final trial reduction was now performed verifying patella tracking and tibiofemoral stability and alignment. The tibia preparation was completed with a drill, saw, and fin punch at the previously noted rotation. The final implants were verified and opened. Outer gloves were changed by the operating team. The bone cuts were washed thoroughly with the Megan InterPulse device and dried. I asked Ms. Atkinson to leave the room while the cement was mixed. Two packages of Witt + Nephew Rally HV bone cement were mixed in powdered form with Vancomycin 1gm and Tobramycin 1.2 gm, and then vacuum-mixed with the monomer, and placed into a cement gun. The cut surfaces of the bone were thoroughly dried with Kent-tip suction and with laparotomy sponges for cement interdigitation. The final components were cemented into place. The knee was kept at full extension while the cement hardened, and excess cement was removed. No tranexamic acid was given at this point. The tourniquet was released, and electrocautery was used for hemostasis. A final periarticular anesthetic injection was used for pain relief. Ms. Atkinson returned. A final check of [id number] and stability was made, and the polyethylene implant final size was chosen. The polyethylene implant was secured to the tibial baseplate, and the knee was reduced a final time and range of motion and stability was confirmed. Thorough irrigation was used. Hemovac and pain catheter were used.The arthrotomy was closed with interrupted [id number] # 1 PDS suture. The arthrotomy incision was then run with #1 STRATAFIX Symmetric PDS Plus Knotless suture. The subcutaneous tissues were closed with #2-0 Vicryl by my assistant hvac mechanic. The skin was approximated with vianca by my assistant hvac mechanic. The skin incision was then covered and reinforced with MARLEE single use negative pressure wound therapy dressing Needle and sponge counts were correct. There were no apparent complications. The patient returned to the recovery room in stable condition. ARGELIA LIU MD Mar 28, 2018 09:52
[2018-03-28] MEDS ORDERED: METOCLOPRAMIDE HCL 10 MG/2 ML VIAL. IV PRN (10:00)
[2018-03-28] MEDS ORDERED: NON FORMULARY ITEM (Warfarin Sodium 4 MG) PO SCH (10:00)
[2018-03-28] MEDS ORDERED: DEXTROSE 50% 25 GM / 50ML DISP.SYRIN. IV PRN (10:00)
[2018-03-28] MEDS ORDERED: traMADol 50 MG TABLET PO PRN ×2 (10:00)
[2018-03-28] MEDS ORDERED: ACETAMINOPHEN 325 MG TABLET. PO PRN (10:00)
[2018-03-28] MEDS ORDERED: CALCIUM CARBONATE 500 MG TAB.CHEW PO PRN (10:00)
[2018-03-28] MEDS ORDERED: fentaNYL PF VIAL 100 MCG/2 ML VIAL IV PRN ×2 (10:00)
[2018-03-28] MEDS ORDERED: diphenhydrAMINE 50 MG/ML VIAL IV PRN (10:00)
[2018-03-28] MEDS ORDERED: PROCHLORPERAZINE 5 MG TABLET. PO PRN (10:00)
[2018-03-28] MEDS ORDERED: 0.9 % SODIUM CHLORIDE 10 ML DISP.SYRIN. IV PRN (10:00)
[2018-03-28] MEDS ORDERED: PROCHLORPERAZINE 10 MG/2 ML VIAL. IV PRN (10:00)
[2018-03-28] MEDS: fentaNYL PF VIAL 100 MCG/2 ML VIAL IV PRN ×2 (10:18→10:49)
--- NOTE | 2018-03-28 10:52 | RAD ---
Portable left knee, 2 views, 03/28/2018: HISTORY: Postop evaluation A total knee prosthesis is in place in satisfactory position. Surgical clips and a surgical drain overlie the operative site. Additional surgical clips are seen medially in the distal left thigh. There is no evidence of a retained surgical instrument, needle or radiopaque sponge on these 2 views. Electronically signed by: Issac Newman MD (03/28/2018 10:48 AM) [facility]
[2018-03-28 12:00] LABS: PROTHROMBIN TIME PATIENT 15.6 SEC (11.7-14.0)
[2018-03-28] MEDS: SENNOSIDES/DOCUSATE 8.6/50MG TABLET. PO SCH (12:17)
[2018-03-28] MEDS ORDERED: WARFARIN 7.5 MG TABLET. PO ONE (16:00)
[2018-03-28] MEDS: FERROUS SULFATE 325 MG TABLET. PO SCH (17:04)
[2018-03-28] MEDS: HYDROcodone/APAP 7.5/325MG 1 TAB TABLET PO PRN (17:05)
[2018-03-28] MEDS: IV DEXTROSE 5 %-0.45 % NACL 1,000 ML IV SCH ×2 (19:48→19:59)
[2018-03-28] MEDS: ATORVASTATIN CALCIUM 20 MG TABLET PO SCH (20:54)
[2018-03-29] VITALS (8 sets, daily range): BP systolic 104–138; BP diastolic 51–64
[2018-03-29] MEDS: HYDROcodone/APAP 7.5/325MG 1 TAB TABLET PO PRN ×3 (02:00→20:36)
[2018-03-29] MEDS: IV DEXTROSE 5 %-0.45 % NACL 1,000 ML IV SCH (05:19)
[2018-03-29] MEDS ORDERED: MAGNESIUM HYDROXIDE 2,400 MG/30 ML ORAL.SUSP. PO PRN (06:00)
[2018-03-29] MEDS: SENNOSIDES/DOCUSATE 8.6/50MG TABLET. PO SCH (08:20)
[2018-03-29] MEDS: FERROUS SULFATE 325 MG TABLET. PO SCH ×2 (08:20→16:28)
[2018-03-29] MEDS: MULTIVITAMIN with MINERAL TABLET. PO SCH (08:20)
[2018-03-29 09:21] LABS: HEMATOCRIT 29.6 % (39.0-53.0); HEMOGLOBIN 9.9 g/dL (13.0-17.5)
[2018-03-29 09:30] LABS: PROTHROMBIN TIME PATIENT 16.2 SEC (11.7-14.0)
--- NOTE | 2018-03-29 09:59 | PDOC ---
PROGRESS NOTES Subjective Subjective Pain controlled. No complaints. Objective Vital Signs Vital Signs Date Time Temp Pulse Resp B/P (MAP) Pulse Ox O2 Delivery O2 Flow Rate FiO2 03/29/18 08:20 Room Air 03/29/18 06:18 98.1 61 20 108/52 (70) 94 98.1 03/28/18 09:59 2 Physical Exam Dressing intact and dry. Hemovac and pain catheter in place. Thigh and calf soft with negative Michaela's sign. Good active range of motion of foot including dorsiflexion and plantar flexion. No signs of compartment syndrome, DVT or neurovascular injury. Labs Laboratory Tests Test 03/28/18 11:45 03/29/18 09:10 Prothrombin Time 15.6 SEC (11.7-14.0) 16.2 SEC (11.7-14.0) Prothromb Time International Ratio 1.3 (0.8-1.1) 1.4 (0.8-1.1) Hemoglobin 9.9 g/dL (13.0-17.5) Hematocrit 29.6 % (39.0-53.0) Mean Corpuscular Hemoglobin Concent 33 g/dL (31-37) Laboratory Tests Test 03/28/18 11:45 03/29/18 09:10 Prothrombin Time 15.6 SEC (11.7-14.0) 16.2 SEC (11.7-14.0) Prothromb Time International Ratio 1.3 (0.8-1.1) 1.4 (0.8-1.1) Hemoglobin 9.9 g/dL (13.0-17.5) Hematocrit 29.6 % (39.0-53.0) Mean Corpuscular Hemoglobin Concent 33 g/dL (31-37) Imaging Postop X-rays reviewed by me. Satisfactory TKA alignment, without apparent complications. Assessment Assessment POD 1 left TKA Plan Plan of Care Continue POC including DVT ppx and therapy. GARY HERNANDEZ Mar 29, 2018 09:59
[2018-03-29] MEDS ORDERED: IV NORMAL SALINE 1000ML BAG 1,000 ML IV ONE (12:30)
[2018-03-29] MEDS: IV NORMAL SALINE 1000ML BAG 1,000 ML IV SCH (13:17)
[2018-03-29] MEDS ORDERED: WARFARIN 5 MG TABLET. PO ONE (16:00)
[2018-03-29] MEDS ORDERED: BISACODYL 10 MG SUPP.RECT. PR PRN (16:00)
[2018-03-29] MEDS: ATORVASTATIN CALCIUM 20 MG TABLET PO SCH (20:34)
[2018-03-30 06:15] LABS: HEMATOCRIT 26.7 % (39.0-53.0)
[2018-03-30 06:30] VITALS: BP 125/52
[2018-03-30 06:36] LABS: PROTHROMBIN TIME PATIENT 19.2 SEC (11.7-14.0)
[2018-03-30] MEDS: HYDROcodone/APAP 7.5/325MG 1 TAB TABLET PO PRN ×3 (07:26→22:19)
[2018-03-30] MEDS: FERROUS SULFATE 325 MG TABLET. PO SCH ×2 (08:28→16:50)
[2018-03-30] MEDS: SENNOSIDES/DOCUSATE 8.6/50MG TABLET. PO SCH (08:28)
[2018-03-30] MEDS: MULTIVITAMIN with MINERAL TABLET. PO SCH (08:28)
[2018-03-30 09:00] VITALS: BP 88/45
[2018-03-30 11:33] VITALS: BP 124/60
--- NOTE | 2018-03-30 12:37 | PDOC ---
GARY HERNANDEZ 03/30/18 1237: PROGRESS NOTES Subjective Subjective Pain worse today than yesterday. BP running low and was lightheaded in therapy this morning. Fluids restarted and now pt is feeling better. Objective Vital Signs Vital Signs Date Time Temp Pulse Resp B/P (MAP) Pulse Ox O2 Delivery O2 Flow Rate FiO2 03/30/18 11:33 98.1 78 16 124/60 (81) Room Air 98.1 03/30/18 06:30 95 03/28/18 09:59 2 Physical Exam Postop dressing and pain catheter have been removed. Calf soft and nontender with negative Michaela's sign. Good AROM of ankle. Minimal erythema/warmth. Labs Laboratory Tests Test 03/29/18 09:10 03/30/18 05:00 Hemoglobin 9.9 g/dL (13.0-17.5) 9.0 g/dL (13.0-17.5) Hematocrit 29.6 % (39.0-53.0) 26.7 % (39.0-53.0) Mean Corpuscular Hemoglobin Concent 33 g/dL (31-37) 34 g/dL (31-37) Prothrombin Time 16.2 SEC (11.7-14.0) 19.2 SEC (11.7-14.0) Prothromb Time International Ratio 1.4 (0.8-1.1) 1.7 (0.8-1.1) Laboratory Tests Test 03/30/18 05:00 Hemoglobin 9.0 g/dL (13.0-17.5) Hematocrit 26.7 % (39.0-53.0) Mean Corpuscular Hemoglobin Concent 34 g/dL (31-37) Prothrombin Time 19.2 SEC (11.7-14.0) Prothromb Time International Ratio 1.7 (0.8-1.1) Assessment Assessment POD #2 TKA Plan Plan of Care Continue POC including DVT ppx and therapy. Continue IV fluids. Discharge planning for tomorrow to home. Dr. Liu saw and examined the patient as well. ARGELIA LIU MD 03/31/18 8473: Attending Co-Sign Attending Co-Sign The patient was seen and interviewed as well as examined at the bedside today. The chart was reviewed. The case was discussed. Agree with the plan of care. Attending Co-Sign Attending Co-Sign The patient was seen and interviewed as well as examined at the bedside. The postop x-rays were reviewed and show satisfactory alignment. The case was discussed. Agree with the plan of care. GARY HERNANDEZ Mar 30, 2018 12:37 ARGELIA LIU MD Mar 31, 2018 11:57
[2018-03-30 15:17] VITALS: BP 140/58
[2018-03-30] MEDS ORDERED: WARFARIN 4 MG TABLET. PO ONE (16:00)
[2018-03-30] MEDS ORDERED: WARFARIN 3 MG TABLET. PO ONE (16:00)
[2018-03-30] MEDS: IV NORMAL SALINE 1000ML BAG 1,000 ML IV SCH (16:50)
[2018-03-30 17:51] VITALS: BP 140/60
[2018-03-30] MEDS: ATORVASTATIN CALCIUM 20 MG TABLET PO SCH (22:17)
[2018-03-31 05:53] LABS: HEMATOCRIT 24.6 % (39.0-53.0); HEMOGLOBIN 8.2 g/dL (13.0-17.5)
[2018-03-31 06:08] LABS: PROTHROMBIN TIME PATIENT 19.4 SEC (11.7-14.0)
[2018-03-31 06:21] VITALS: BP 124/67
[2018-03-31] MEDS: FERROUS SULFATE 325 MG TABLET. PO SCH ×2 (08:09→17:00)
[2018-03-31] MEDS: SENNOSIDES/DOCUSATE 8.6/50MG TABLET. PO SCH (08:09)
[2018-03-31] MEDS: MULTIVITAMIN with MINERAL TABLET. PO SCH (08:10)
--- NOTE | 2018-03-31 09:05 | PDOC ---
PROGRESS NOTES Subjective Subjective No complaints, pain better today. BP has been better since IV fluids. Pt denies any feelings of lightheadedness so far today. Objective Vital Signs Vital Signs Date Time Temp Pulse Resp B/P (MAP) Pulse Ox O2 Delivery O2 Flow Rate FiO2 03/31/18 06:21 98.3 67 18 124/67 (86) 98 Room Air 98.3 03/30/18 22:19 2.0 Physical Exam MARLEE intact and dry. Good AROM ankle. Calf soft and nontender. Minimal warmth or erythema. NVI. Labs Laboratory Tests Test 03/29/18 09:10 03/30/18 05:00 03/31/18 04:45 Hemoglobin 9.9 g/dL (13.0-17.5) 9.0 g/dL (13.0-17.5) 8.2 g/dL (13.0-17.5) Hematocrit 29.6 % (39.0-53.0) 26.7 % (39.0-53.0) 24.6 % (39.0-53.0) Mean Corpuscular Hemoglobin Concent 33 g/dL (31-37) 34 g/dL (31-37) 33 g/dL (31-37) Prothrombin Time 16.2 SEC (11.7-14.0) 19.2 SEC (11.7-14.0) 19.4 SEC (11.7-14.0) Prothromb Time International Ratio 1.4 (0.8-1.1) 1.7 (0.8-1.1) 1.7 (0.8-1.1) Laboratory Tests Test 03/31/18 04:45 Hemoglobin 8.2 g/dL (13.0-17.5) Hematocrit 24.6 % (39.0-53.0) Mean Corpuscular Hemoglobin Concent 33 g/dL (31-37) Prothrombin Time 19.4 SEC (11.7-14.0) Prothromb Time International Ratio 1.7 (0.8-1.1) Assessment Assessment POD #3 TKA Plan Plan of Care Discharge planning for today. We will discontinue the IV fluids and will see how he does in morning and afternoon therapy. If he becomes lightheaded again, we will plan for pt to be discharged to [facility]. If he is asymptomatic in therapy, we will discharge to home with home health. Pt and agree with this plan. Continue PT and DVT prophylaxis. F/U 10-14 days in office. GARY HERNANDEZ Mar 31, 2018 09:05
[2018-03-31] MEDS: HYDROcodone/APAP 7.5/325MG 1 TAB TABLET PO PRN ×3 (10:10→17:01)
[2018-03-31] MEDS ORDERED: SENN-37 PO (10:43)
[2018-03-31] MEDS ORDERED: HYDR-2762 PO (10:44)
--- NOTE | 2018-03-31 11:37 | PDOC3 ---
Discharge Summary Visit Information Date of Admission: Mar 28, 2018 Date of Discharge: Mar 31, 2018 Admitting Diagnosis: left knee osteoarthritis Brief Hospital Course Allergies Allergies Coded Allergies Type Severity Reaction Last Updated Verified grass pollen Allergy Intermediate 03/28/18 Yes pollen extracts Allergy Intermediate 03/28/18 Yes morphine Adverse Reaction Intermediate severe vomiting 03/28/18 Yes oxycodone Adverse Reaction Mild 03/28/18 Yes Vital Signs Vital Signs Date Time Temp Pulse Resp B/P (MAP) Pulse Ox O2 Delivery O2 Flow Rate FiO2 03/31/18 10:10 20 03/31/18 06:21 98.3 67 124/67 (86) 98 Room Air 98.3 03/30/18 22:19 2.0 Lab Results Laboratory Tests Test 03/30/18 05:00 03/31/18 04:45 Hemoglobin 9.0 g/dL (13.0-17.5) 8.2 g/dL (13.0-17.5) Hematocrit 26.7 % (39.0-53.0) 24.6 % (39.0-53.0) Mean Corpuscular Hemoglobin Concent 34 g/dL (31-37) 33 g/dL (31-37) Prothrombin Time 19.2 SEC (11.7-14.0) 19.4 SEC (11.7-14.0) Prothromb Time International Ratio 1.7 (0.8-1.1) 1.7 (0.8-1.1) Laboratory Tests Test 03/31/18 04:45 Hemoglobin 8.2 g/dL (13.0-17.5) Hematocrit 24.6 % (39.0-53.0) Mean Corpuscular Hemoglobin Concent 33 g/dL (31-37) Prothrombin Time 19.4 SEC (11.7-14.0) Prothromb Time International Ratio 1.7 (0.8-1.1) Brief Hospital Course 77 year old male who presented with knee osteoarthritis, for elective total knee arthroplasty. The patient underwent total knee arthroplasty under general anesthesia the day of admission. Perioperative antibiotics and DVT prophylaxis were used. Postoperatively physical therapy and case management were consulted. The patient progressed and is stable for discharge. Discharge Information Condition at Discharge: Stable Follow Up: Weeks (3) Disposition/Orders: D/C to Another Facility ([facility]) Scheduled Atorvastatin Calcium (Lipitor), 20 MG PO HS, (Reported) Ferrous Sulfate (Ferrous Sulfate), 325 MG PO DAILY, (Reported) Sennosides/Docusate Sodium (Senokot-S Tablet), 1 TAB PO BID, (Reported) Warfarin Sodium (Warfarin Sodium), 4 MG PO UD, (Reported) Scheduled PRN Hydrocodone Bit/Acetaminophen (Hydrocodone-Apap 7.5-325 ), 1-2 TAB PO PRN Q4- 6HRS PRN for PAIN, (Reported) Patient Instructions Patient Instructions Patient Instructions Continue to WBAT with walker. Keep dressing dry and intact. F/U with [facility] in 10-14 days. Call for appointment. Physical therapy for TKA Continue DVT prophylaxis with Coumadin, home dosage. GARY HERNANDEZ Mar 31, 2018 11:37
[2018-03-31 12:00] VITALS: BP 115/49
[2018-03-31] MEDS ORDERED: WARFARIN 6 MG TABLET. PO ONE (12:00)
[2018-03-31] MEDS: IV NORMAL SALINE 1000ML BAG 1,000 ML IV SCH (12:30)
--- NOTE | 2018-03-31 13:09 | DISCH ---
DISCHARGE DISCHARGE INFORMATION: DISCHARGE DATE: Mar 31, 2018 CONDITION ON DISCHARGE: Stable CODE STATUS: Code Status: Full CUSTODIAL: SNF STAY <30 DAYS: Yes POST DISCHARGE ORDERS: ACTIVITY ORDERS: Activity as tolerated, Walk in house WEIGHT BEARING STATUS: No restrictions, Full weight bearing, As tolerated BATHING ORDERS: Shower-keep dressing dry, No Tub Bath until see WOUND/INCISION CARE: Ice to area for comfort, Keep wound/cast CDI, Keep wound elevated, Do not change dressing OTHER WOUND INSTRUCTIONS: remove battery pack on Wednesday 04/04 cut tubing and tape down CHECKS AFTER DISCHARGE: CHECKS AFTER DISCHARGE: Check blood press - daily COMMENTS: maintain INR between 2.0-3.0 PT/INR per facility' FOLLOW-UP: ADDITIONAL FOLLOW-UP: call [phone] for a 2 week post op appt with Dr. Liu /Gary WARFARIN FOLLOW-UP NEEDED: House physician to manage coumadin while in facility TREATMENT/EQUIPMENT ORDERS: ADAPTIVE EQUIPMENT NEEDED: None Physical Therapy For: Evalulation/Treatment Occupational Therapy For: Evaluation/Treatment DISCHARGE MEDICATIONS: Home Meds Reported Medications Hydrocodone Bit/Acetaminophen (HYDROCODONE-APAP 7.5-325 ) 1 Each Tablet, 1-2 TAB PO PRN Q4-6HRS PRN for PAIN, TAB 0 Refills 03/31/18 Sennosides/Docusate Sodium (SENOKOT-S TABLET) 1 Each Tablet, 1 TAB PO BID for constipation, #30 TAB 03/31/18 Ferrous Sulfate (FERROUS SULFATE) 325 Mg Tablet, 325 MG PO DAILY for supplement , TAB 07/29/17 Warfarin Sodium (WARFARIN SODIUM) 4 Mg Tablet, 4 MG PO UD, TAB 07/29/17 Atorvastatin Calcium (LIPITOR) 20 Mg Tablet, 20 MG PO HS for FOR CHOLESTEROL, # 30 TAB 0 Refills 07/29/17 GARY HERNANDEZ Mar 31, 2018 13:09
--- NOTE | 2018-03-31 16:09 | PATHOLOGY ---
[facility] Accession Number: [id number] . 01 Material submitted: . BONE LEFT KNEE . 01 Clinical history: . Osteoarthritis . 02 Diagnosis: "Bone left knee", removal: - Degenerative osteoarthritis. - Portions of synovium with focal mild chronic inflammation. (SKM/db; 03/30/18) LBQ/03/30/2018 . 02 Electronically signed: . Franky Wei MD, Pathologist NPI- [id number] . 01 Gross description: . Received in formalin labeled "Alverto Stratton, bone left knee," are multiple segments of bone, including tibial plateau, measuring 17.8 x 13.0 x 2.7 cm in aggregate dimensions. Soft tissue and meniscus are present. The specimen displays focal eburnation of the articular surfaces. Cytogeneticist bone and soft tissue are submitted in cassette A1, following decalcification. ([facility]; 03/29/2018) XDC/JBR . 02 Pathologist provided ICD-10: M17.12, M65.862 . 02 CPT . 736590, 629537 Specimen Comment: A courtesy copy of this report has been sent to Specimen Comment: [phone], . Specimen Comment: Report sent to / DR PRAJAPATI Performed at: 01 [facility] [address], [place] [id number] MD Andrez Rodriguez MD Phone: [phone] Performed at: 02 [facility] [address], [place] [id number] MD Jaziel Oneal MD Phone: [phone]
[2018-03-31 16:49] VITALS: BP 133/56
[2018-03-31] MEDS ORDERED: MAGNESIUM HYDROXIDE 2,400 MG/30 ML ORAL.SUSP. PO ONE (18:30)
[2018-03-31 19:00] VITALS: BP 120/56
[2018-03-31] MEDS: ATORVASTATIN CALCIUM 20 MG TABLET PO SCH (21:22)
[2018-03-31 23:00] VITALS: BP 115/53
[2018-04-01 03:00] VITALS: BP 115/58
[2018-04-01 05:34] LABS: PROTHROMBIN TIME PATIENT 21.4 SEC (11.7-14.0)
[2018-04-01 07:00] VITALS: BP 118/50
[2018-04-01 07:34] LABS: BASO % 1 % (0-3); EOS # 0.1 x10^3/uL (0.0-0.7); EOS % 1 % (0-3); HEMATOCRIT 24.8 % (39.0-53.0); HEMOGLOBIN 8.6 g/dL (13.0-17.5); LYMPH % 19 % (24-48); MEAN CORPUSCULAR HEMOGLOBIN 32 pg (25-35); MEAN CORPUSCULAR HGB CONC 35 g/dL (31-37); MEAN CORPUSCULAR VOLUME 93 fL (79-100); MONO # 2.2 x10^3/uL (0.0-1.1); MONO % 21 % (0-9); NEUT # 6.2 x10^3uL (1.8-7.7); NEUT % 58 % (31-73); PLATELET COUNT 137 x10^3/uL (140-400); RED BLOOD COUNT 2.67 x10^6/uL (4.30-5.70); RED CELL DISTRIBUTION WIDTH 14.1 % (11.5-14.5); WHITE BLOOD COUNT 10.6 x10^3/uL (4.0-11.0)
[2018-04-01] MEDS: MULTIVITAMIN with MINERAL TABLET. PO SCH (08:34)
[2018-04-01] MEDS: FERROUS SULFATE 325 MG TABLET. PO SCH ×2 (08:34→16:33)
[2018-04-01] MEDS: SENNOSIDES/DOCUSATE 8.6/50MG TABLET. PO SCH (08:34)
[2018-04-01] MEDS: HYDROcodone/APAP 10/325 1 TAB TABLET PO PRN ×3 (08:35→21:11)
[2018-04-01 08:41] LABS: % BANDS 3 % (0-9); % EOS 2 % (0-5); % LYMPHS 21 % (24-48); % MONOS 14 % (0-10)
[2018-04-01 08:42] LABS: % SEGS 60 % (35-66); PLT ESTIMATE ADEQUATE (ADEQUATE)
[2018-04-01 08:43] LABS: OVALOCYTES FEW
[2018-04-01 11:48] VITALS: BP 106/45
[2018-04-01] MEDS: IV NORMAL SALINE 1000ML BAG 1,000 ML IV SCH (12:30)
--- NOTE | 2018-04-01 13:32 | PDOC ---
PROGRESS NOTES Subjective Subjective Pain controlled. Had hypotension with therapy this morning. Per , has not been transferred to for insurance reasons. Planning on transfer Tuesday. Objective Vital Signs Vital Signs Date Time Temp Pulse Resp B/P (MAP) Pulse Ox O2 Delivery O2 Flow Rate FiO2 04/01/18 11:48 98.2 66 106/45 (65) 97 Room Air 2.0 98.2 04/01/18 03:00 18 Physical Exam Lying in recliner. MARLEE intact with tiny spot of bloody drainage. Ecchymosis laterally. Calf soft and nontender with negative Michaela's. Good df/pf at foot. NVI. Labs Laboratory Tests Test 03/31/18 04:45 04/01/18 04:10 Hemoglobin 8.2 g/dL (13.0-17.5) 8.6 g/dL (13.0-17.5) Hematocrit 24.6 % (39.0-53.0) 24.8 % (39.0-53.0) Mean Corpuscular Hemoglobin Concent 33 g/dL (31-37) 35 g/dL (31-37) Prothrombin Time 19.4 SEC (11.7-14.0) 21.4 SEC (11.7-14.0) Prothromb Time International Ratio 1.7 (0.8-1.1) 1.9 (0.8-1.1) White Blood Count 10.6 x10^3/uL (4.0-11.0) Red Blood Count 2.67 x10^6/uL (4.30-5.70) Mean Corpuscular Volume 93 fL (79-100) Mean Corpuscular Hemoglobin 32 pg (25-35) Red Cell Distribution Width 14.1 % (11.5-14.5) Platelet Count 137 x10^3/uL (140-400) Neutrophils (%) (Auto) 58 % (31-73) Lymphocytes (%) (Auto) 19 % (24-48) Monocytes (%) (Auto) 21 % (0-9) Eosinophils (%) (Auto) 1 % (0-3) Basophils (%) (Auto) 1 % (0-3) Neutrophils # (Auto) 6.2 x10^3uL (1.8-7.7) Lymphocytes # (Auto) 2.0 x10^3/uL (1.0-4.8) Monocytes # (Auto) 2.2 x10^3/uL (0.0-1.1) Eosinophils # (Auto) 0.1 x10^3/uL (0.0-0.7) Basophils # (Auto) 0.0 x10^3/uL (0.0-0.2) Segmented Neutrophils % 60 % (35-66) Band Neutrophils % 3 % (0-9) Lymphocytes % 21 % (24-48) Monocytes % 14 % (0-10) Eosinophils % 2 % (0-5) Platelet Estimate Adequate (ADEQUATE) Ovalocytes Few Laboratory Tests Test 04/01/18 04:10 White Blood Count 10.6 x10^3/uL (4.0-11.0) Red Blood Count 2.67 x10^6/uL (4.30-5.70) Hemoglobin 8.6 g/dL (13.0-17.5) Hematocrit 24.8 % (39.0-53.0) Mean Corpuscular Volume 93 fL (79-100) Mean Corpuscular Hemoglobin 32 pg (25-35) Mean Corpuscular Hemoglobin Concent 35 g/dL (31-37) Red Cell Distribution Width 14.1 % (11.5-14.5) Platelet Count 137 x10^3/uL (140-400) Neutrophils (%) (Auto) 58 % (31-73) Lymphocytes (%) (Auto) 19 % (24-48) Monocytes (%) (Auto) 21 % (0-9) Eosinophils (%) (Auto) 1 % (0-3) Basophils (%) (Auto) 1 % (0-3) Neutrophils # (Auto) 6.2 x10^3uL (1.8-7.7) Lymphocytes # (Auto) 2.0 x10^3/uL (1.0-4.8) Monocytes # (Auto) 2.2 x10^3/uL (0.0-1.1) Eosinophils # (Auto) 0.1 x10^3/uL (0.0-0.7) Basophils # (Auto) 0.0 x10^3/uL (0.0-0.2) Segmented Neutrophils % 60 % (35-66) Band Neutrophils % 3 % (0-9) Lymphocytes % 21 % (24-48) Monocytes % 14 % (0-10) Eosinophils % 2 % (0-5) Platelet Estimate Adequate (ADEQUATE) Ovalocytes Few Prothrombin Time 21.4 SEC (11.7-14.0) Prothromb Time International Ratio 1.9 (0.8-1.1) Assessment Assessment POD #4 left TKA Plan Plan of Care Continue DVT ppx and therapy. Will restart IV fluids due to hypotension causing lightheadedness. At this time, pt states he is comfortable. WBAT on LLE. GARY HERNANDEZ Apr 01, 2018 13:32
[2018-04-01 15:35] VITALS: BP 109/47
[2018-04-01] MEDS ORDERED: WARFARIN 5 MG TABLET. PO ONE (16:00)
[2018-04-01 19:20] VITALS: BP 128/58
[2018-04-01] MEDS: ZOLPIDEM 5 MG TABLET. PO PRN (21:11)
[2018-04-01] MEDS: ATORVASTATIN CALCIUM 20 MG TABLET PO SCH (21:11)
[2018-04-01 23:14] VITALS: BP 119/56
[2018-04-02 03:09] VITALS: BP 115/54
[2018-04-02 06:39] LABS: PROTHROMBIN TIME PATIENT 22.1 SEC (11.7-14.0)
[2018-04-02 07:00] VITALS: BP 130/61
[2018-04-02] MEDS: MULTIVITAMIN with MINERAL TABLET. PO SCH (09:16)
[2018-04-02] MEDS: FERROUS SULFATE 325 MG TABLET. PO SCH ×2 (09:16→16:02)
[2018-04-02] MEDS: SENNOSIDES/DOCUSATE 8.6/50MG TABLET. PO SCH (09:16)
[2018-04-02 11:00] VITALS: BP 139/57
[2018-04-02] MEDS: HYDROcodone/APAP 10/325 1 TAB TABLET PO PRN ×3 (11:51→20:32)
--- NOTE | 2018-04-02 11:51 | PDOC ---
PROGRESS NOTES Subjective Subjective Pt states pain is controlled, but he does have some burning at his IV site. Per RN, BP continues to drop when he gets up. IV fluids running at 100cc/hr now. Objective Vital Signs Vital Signs Date Time Temp Pulse Resp B/P (MAP) Pulse Ox O2 Delivery O2 Flow Rate FiO2 04/02/18 08:00 Room Air 04/02/18 07:00 98.3 70 18 130/61 (84) 100 98.3 04/01/18 17:45 2.0 Physical Exam Sitting up in recliner. Left knee MARLEE intact and dry. Minimal warmth and erythema. Mild edema at ankle. Calf soft and nontender with negative Michaela's sign. Good df/pf at ankle. NVI. Labs Laboratory Tests Test 04/01/18 04:10 04/02/18 05:00 White Blood Count 10.6 x10^3/uL (4.0-11.0) Red Blood Count 2.67 x10^6/uL (4.30-5.70) Hemoglobin 8.6 g/dL (13.0-17.5) Hematocrit 24.8 % (39.0-53.0) Mean Corpuscular Volume 93 fL (79-100) Mean Corpuscular Hemoglobin 32 pg (25-35) Mean Corpuscular Hemoglobin Concent 35 g/dL (31-37) Red Cell Distribution Width 14.1 % (11.5-14.5) Platelet Count 137 x10^3/uL (140-400) Neutrophils (%) (Auto) 58 % (31-73) Lymphocytes (%) (Auto) 19 % (24-48) Monocytes (%) (Auto) 21 % (0-9) Eosinophils (%) (Auto) 1 % (0-3) Basophils (%) (Auto) 1 % (0-3) Neutrophils # (Auto) 6.2 x10^3uL (1.8-7.7) Lymphocytes # (Auto) 2.0 x10^3/uL (1.0-4.8) Monocytes # (Auto) 2.2 x10^3/uL (0.0-1.1) Eosinophils # (Auto) 0.1 x10^3/uL (0.0-0.7) Basophils # (Auto) 0.0 x10^3/uL (0.0-0.2) Segmented Neutrophils % 60 % (35-66) Band Neutrophils % 3 % (0-9) Lymphocytes % 21 % (24-48) Monocytes % 14 % (0-10) Eosinophils % 2 % (0-5) Platelet Estimate Adequate (ADEQUATE) Ovalocytes Few Prothrombin Time 21.4 SEC (11.7-14.0) 22.1 SEC (11.7-14.0) Prothromb Time International Ratio 1.9 (0.8-1.1) 2.0 (0.8-1.1) Laboratory Tests Test 04/02/18 05:00 Prothrombin Time 22.1 SEC (11.7-14.0) Prothromb Time International Ratio 2.0 (0.8-1.1) Assessment Assessment POD #5 left TKA Plan Plan of Care Continue DVT ppx and therapy. He continues to have low blood pressure when getting up, which is what happened after his right total knee surgery as well. We will give a bolus of 500cc NS now and then increase rate of fluids to 125cc/ hr. Continue monitoring blood pressure. Planning for discharge to [facility] tomorrow. F/u with [facility] 10-14 days postop. GARY HERNANDEZ Apr 02, 2018 11:51
[2018-04-02] MEDS ORDERED: IV NORMAL SALINE 500ML BAG 500 ML IV ONE (12:15)
[2018-04-02] MEDS: IV NORMAL SALINE 1000ML BAG 1,000 ML IV SCH ×2 (12:15→20:33)
[2018-04-02 15:00] VITALS: BP 150/50
[2018-04-02] MEDS ORDERED: WARFARIN 5 MG TABLET. PO ONE (16:00)
[2018-04-02 19:20] VITALS: BP 134/60
[2018-04-02] MEDS: ATORVASTATIN CALCIUM 20 MG TABLET PO SCH (20:33)
[2018-04-02] MEDS: ZOLPIDEM 5 MG TABLET. PO PRN (20:33)
[2018-04-02 23:22] VITALS: BP 128/58
[2018-04-03 03:05] VITALS: BP 140/61
[2018-04-03] MEDS: IV NORMAL SALINE 1000ML BAG 1,000 ML IV SCH ×2 (04:15→11:26)
[2018-04-03 05:05] LABS: PROTHROMBIN TIME PATIENT 25.5 SEC (11.7-14.0)
[2018-04-03 07:00] VITALS: BP 146/44
[2018-04-03] MEDS: HYDROcodone/APAP 10/325 1 TAB TABLET PO PRN ×3 (09:20→15:36)
[2018-04-03] MEDS: FERROUS SULFATE 325 MG TABLET. PO SCH ×2 (09:20→15:36)
[2018-04-03] MEDS: MULTIVITAMIN with MINERAL TABLET. PO SCH (09:20)
[2018-04-03] MEDS: SENNOSIDES/DOCUSATE 8.6/50MG TABLET. PO SCH (09:20)
[2018-04-03 11:00] VITALS: BP 128/57
[2018-04-03 15:00] VITALS: BP 126/52
[2018-04-03] MEDS ORDERED: WARFARIN 4 MG TABLET. PO ONE (16:00)
== END 2018-04-03 16:00 | DRG 470 ==
LOC: OPSVCIP 10:24 → 4 SOUTHEST 11:00 → 4 NORTH 03-31 18:59
PROVIDERS: ADMIT Orthopaedic Surgery; ATTEND Orthopaedic Surgery
PROC: 0SRD0J9 Replacement of Left Knee Joint with Synthetic Substitute, Cemented, Open Approach (ICD-10-PCS; principal; 2018-03-28 07:10)
DX: M17.12 Unilateral primary osteoarthritis, left knee (principal); I12.9 Hypertensive chronic kidney disease with stage 1 through stage 4 chronic kidney disease, or unspecified chronic kidney disease; N18.9 Chronic kidney disease, unspecified; I95.9 Hypotension, unspecified; Z96.651 Presence of right artificial knee joint; Z95.0 Presence of cardiac pacemaker; Z98.49 Cataract extraction status, unspecified eye; Z88.8 Allergy status to other drugs, medicaments and biological substances; Z88.5 Allergy status to narcotic agent; Z83.3 Family history of diabetes mellitus; Z82.49 Family history of ischemic heart disease and other diseases of the circulatory system; Z80.9 Family history of malignant neoplasm, unspecified; Z82.61 Family history of arthritis
CPT/HCPCS: 36415; 73560; 85007; 85014; 85018; 85025; 85610; 86850; 86900; 86901; 88305; 88311; A7015; C1713; J0171; J0690; J1100; J1885; J2270; J2370; J2405; J2704; J2795; J3010; J3260; J3370; J3490; J7030; J7040; J7120; 97110; 97116; 97150; 97530; 97535; A4461; C1769

== ENCOUNTER 2020-04-02 02:15 | Emergency (ER) | payer OTHER ==
[~2020-04-02] VITALS: Ht 193 cm; Wt 106.6 kg
[~2020-04-02 02:15] MED LIST changes: -ACETAMINOPHEN 500 MG TABLET PO ONE; -DEXAMETHASONE SOD PHOS 20 MG/5 ML VIAL. ONE; +DONE10TA7 PO; +FLUO10CA14 PO; +HYDR-2765 PO; -HYDROcodone/APAP 7.5/325MG 1 TAB TABLET PO PRN; -HYDROmorphone 2 MG/ML VIAL IV PRN; -IV RINGERS,LACTATED 1000ML 1,000 ML IV SCH; -KETOROLAC 30 MG/ML INJ FOR OR. INJ ONE; -KETOROLAC 30MG VIAL 30 MG, ROPIVacaine 0.5% PF 60 ML, EPINEPHrine 0.5 MG in IV NORMAL S... INT ART ONE; -LIDOCAINE 1% PF 2 ML VIAL. ID PRN; +MEMA5TAB42 PO; -MORPHINE SULFATE 2 MG/ML VIAL. IV PRN; -MORPHINE SULFATE 5 MG, KETOROLAC 30MG VIAL 30 MG, ROPIVacaine 0.5% PF 60 ML, EPINEPHrin... INT ART ONE; +NIAC500T51 PO; -NIAC500T8 PO; -ONDANSETRON PF 4 MG/2 ML VIAL. IV PRN; -ONDANSETRON PF 4 MG/2 ML VIAL. ONE; -PROCHLORPERAZINE 10 MG/2 ML VIAL. IV PRN; -PROPOFOL 20 ML IV ONE; +SENN-37 PO; +TAMS0.4C2 PO; -TOBRAMYCIN POWDER 1.2 GM VIAL. ONE; -TRANEXAMIC ACID 1,000 MG in IV NS 50ML -- 1ST BAG INJ ONE; -VANCOMYCIN 1 GM VIAL. ONE; -fentaNYL PF VIAL 100 MCG/2 ML VIAL IV PRN; -fentaNYL PF VIAL 100 MCG/2 ML VIAL ONE
--- NOTE | 2020-04-02 02:40 | PHYS DOC ---
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 No head pain, neck pain, back pain, or abdominal pain. No extremity pain. History is otherwise limited secondary to baseline dementia. Ancillary history obtained from spouse. Review of Systems: Review of Systems: Review of systems limited secondary to baseline dementia. Chest: Reports left chest wall pain. Heart Score: Risk Factors: Risk Factors: DM, Current or recent (<one month) smoker, HTN, HLP, family history of CAD, obesity. Risk Scores: Score 0 - 3: 2.5% MACE over next 6 weeks - Discharge Home Score 4 - 6: 20.3% MACE over next 6 weeks - Admit for Clinical Observation Score 7 - 10: 72.7% MACE over next 6 weeks - Early Invasive Strategies Allergies: Allergies: Allergies Coded Allergies Type Severity Reaction Last Updated Verified grass pollen Allergy Intermediate 03/28/18 Yes pollen extracts Allergy Intermediate 03/28/18 Yes morphine Adverse Reaction Intermediate severe vomiting 03/28/18 Yes oxycodone Adverse Reaction Mild 03/28/18 Yes Physical Exam: PE: Gen: NAD. Head: NC/AT. Eyes: No scleral icterus. No conjunctival injection. PERRL. ENT: MMM. Posterior OP clear. No epistaxis or septal hematoma. Neck: Supple. NT. CV: RRR. Peripheral pulses intact. Resp: CTAB. Chest: Mild left anterior chest wall TTP. Symmetric chest rise. Abd: Soft. NT. ND. MSK: No peripheral cyanosis. No edema. Extremities atraumatic x4. Back: No midline spinal TTP or stepoffs. Neuro: A&Ox1. Strength & sensation grossly intact throughout. GCS 15. Skin. Warm. Dry. Psych: Appropriate mood & affect. Current Patient Data: Labs: Laboratory Tests Test 04/02/20 02:16 04/02/20 04:20 White Blood Count 17.8 x10^3/uL (4.0-11.0) Red Blood Count 3.54 x10^6/uL (4.30-5.70) Hemoglobin 11.2 g/dL (13.0-17.5) Hematocrit 33.6 % (39.0-53.0) Mean Corpuscular Volume 95 fL (79-100) Mean Corpuscular Hemoglobin 32 pg (25-35) Mean Corpuscular Hemoglobin Concent 33 g/dL (31-37) Red Cell Distribution Width 13.3 % (11.5-14.5) Platelet Count 212 x10^3/uL (140-400) Neutrophils (%) (Auto) 87 % (31-73) Lymphocytes (%) (Auto) 9 % (24-48) Monocytes (%) (Auto) 5 % (0-9) Eosinophils (%) (Auto) 0 % (0-3) Basophils (%) (Auto) 0 % (0-3) Neutrophils # (Auto) 15.4 x10^3/uL (1.8-7.7) Lymphocytes # (Auto) 1.5 x10^3/uL (1.0-4.8) Monocytes # (Auto) 0.8 x10^3/uL (0.0-1.1) Eosinophils # (Auto) 0.0 x10^3/uL (0.0-0.7) Basophils # (Auto) 0.0 x10^3/uL (0.0-0.2) Segmented Neutrophils % 82 % (35-66) Band Neutrophils % 2 % (0-9) Lymphocytes % 10 % (24-48) Monocytes % 6 % (0-10) Nucleated Red Blood Cells 1 Platelet Estimate Adequate (ADEQUATE) Prothrombin Time 42.4 SEC (11.7-14.0) Prothromb Time International Ratio 4.4 (0.8-1.1) Sodium Level 137 mmol/L (136-145) Chloride Level 104 mmol/L (98-107) Carbon Dioxide Level 26 mmol/L (21-32) Anion Gap 7 (6-14) Blood Urea Nitrogen 39 mg/dL (8-26) Estimated GFR (Cockcroft-Gault) 41.8 Glucose Level 199 mg/dL (70-99) Calcium Level 8.8 mg/dL (8.5-10.1) Troponin I Quantitative < 0.017 ng/mL (0.000-0.055) Urine Collection Type Unknown Urine Color Yellow Urine Clarity Cloudy Urine pH 5.0 (<5.0-8.0) Urine Specific [employer] 1.015 (1.000-1.030) Urine Protein Negative mg/dL (NEG-TRACE) Urine Glucose (UA) 250 mg/dL (NEG) Urine Ketones (Stick) Negative mg/dL (NEG) Urine Blood Negative (NEG) Urine Nitrite Negative (NEG) Urine Bilirubin Negative (NEG) Urine Urobilinogen Dipstick 0.2 mg/dL (0.2 mg/dL) Urine Leukocyte Esterase Negative (NEG) Urine RBC 0 /HPF (0-2) Urine WBC Rare /HPF (0-4) Urine Squamous Epithelial Cells Few /LPF Urine Amorphous Sediment Present /HPF Urine Bacteria 0 /HPF (0-FEW) Urine Mucus Mod /LPF EKG: EKG: [] Radiology/Procedures: Radiology/Procedures: Examination: CT head and cervical spine without contrast CT HEAD INDICATION: Reason: FAll on coumadin / Spl. Instructions: / History: COMPARISON: 07/09/2018 Exposure: One or more of the following individualized dose reduction techniques were utilized for this examination: 1. Automated exposure control 2. Adjustment of the mA and/or kV according to patient size 3. Use of iterative reconstruction technique TECHNIQUE: 5 mm contiguous axial images were obtained from the skull base to the vertex in both bone and soft tissue algorithm. FINDINGS: Mild bilateral periventricular white matter hypodensities likely chronic small vessel ischemic disease. No evidence of acute intracranial hemorrhage. No extra-axial fluid collections. No mass effect or midline shift. Ventricular size is appropriate. Basal cisterns are patent. No fractures identified.Amador-white differentiation is preserved.Globes and orbits are within normal limits. Paranasal sinuses and mastoid air cells are clear. IMPRESSION: No acute intracranial findings. CT CERVICAL SPINE INDICATION: Reason: FAll on coumadin / Spl. Instructions: / History: COMPARISON: None Available. Technique: 2.5 mm contiguous axial images were obtained from the skull base through the cervicothoracic junction in both bone and soft tissue algorithm. Additional sagittal and coronal reconstructions were also performed. FINDINGS: Vertebral body height and alignment are maintained. Cervical lordosis is preserved. The lateral masses of C1 are aligned upon C2. No fractures identified. The bony canal is patent throughout. Moderate intervertebral disc height loss identified in the cervical spine particularly at C4-C5, C5-C6, C6-C7 vertebral levels. The paraspinous soft tissues are unremarkable. Visualized intracranial contents are unremarkable. Lung apices are clear. IMPRESSION: 1. No acute fracture of the cervical spine. Correlate clinically. Electronically signed by: Lamine Guzmán MD (04/02/2020 3:11 AM) [id number] History: Left chest wall pain COMPARISON: 02/22/2019 TECHNIQUE: Single portable radiograph of the chest FINDINGS: Mild cardiomegaly. Left-sided cardiac pacer. The costophrenic sulci are clear and well demarcated. The lungs are clear. IMPRESSION: No radiographic evidence of an acute cardiopulmonary process. Electronically signed by: Lamine Guzmán MD (04/02/2020 3:53 AM) [email or web address] Course & Med Decision Making: Course & Med Decision Making Pertinent Labs and Imaging studies reviewed. (See chart for details) In summary, 79M p/w fall out of bed, with left chest wall pain. Unremarkable cardioresp exam. Mild left chest TTP without crepitus. Symmetric chest rise and breath sounds. HDS. Labs with elevated INR 4.4 (though just took his coumadin a few hours [employer]GG[employer]PER[employer]) and suspected stress leukocytosis (no fever, URI/GI/ Sx, source of infection, with patient otherwise feeling well and at baseline). After a shared decision making discussion with patient and spouse, have opted to go home. Will have patient hold tonight's dose of coumadin and resume 04/03 in PM (checks INR at home every ). Rx lido patch. Return precautions given. Dragon Disclaimer: Dragon Disclaimer: This electronic medical record was generated, in whole or in part, using a voice recognition dictation system. Departure Departure Impression: Primary Impression: Fall Additional Impressions: Supratherapeutic INR Contusion of left chest wall Disposition: HOME, SELF-CARE Condition: STABLE Referrals: MARILEE PRAJAPATI MD (PCP) Patient Instructions: Chest Contusion, [id number] Additional Instructions: Please hold tonight's (Apr 02) dose of coumadin, and resume as usual tomorrow (Apr 03) evening. Apply the pain patch to your left chest wall for up to 12 hours at a time. Remove the old patch for 6-12 hours prior to applying a new one. Scripts Lidocaine (Lidocaine PATCH ) 1 Each Adh..patch 1 EACH TP DAILY for FOR LOCAL PAIN, #10 PATCH REMOVE AFTER 12 HOURS Prov: YAJAIRA GUILLAUME DO 04/02/20 Justicifation of Admission Dx: Justifications for Admission: Justification of Admission Dx: N/A YAJAIRA GUILLAUME DO Apr 02, 2020 02:40
[2020-04-02 02:44] LABS: BASO % 0 % (0-3); EOS % 0 % (0-3); HEMATOCRIT 33.6 % (39.0-53.0); HEMOGLOBIN 11.2 g/dL (13.0-17.5); LYMPH # 1.5 x10^3/uL (1.0-4.8); LYMPH % 9 % (24-48); MEAN CORPUSCULAR HEMOGLOBIN 32 pg (25-35); MEAN CORPUSCULAR HGB CONC 33 g/dL (31-37); MEAN CORPUSCULAR VOLUME 95 fL (79-100); MONO # 0.8 x10^3/uL (0.0-1.1); MONO % 5 % (0-9); NEUT # 15.4 x10^3/uL (1.8-7.7); NEUT % 87 % (31-73); PLATELET COUNT 212 x10^3/uL (140-400); RED BLOOD COUNT 3.54 x10^6/uL (4.30-5.70); RED CELL DISTRIBUTION WIDTH 13.3 % (11.5-14.5); WHITE BLOOD COUNT 17.8 x10^3/uL (4.0-11.0)
[2020-04-02 02:52] LABS: CALCIUM 8.8 mg/dL (8.5-10.1); CREATININE 1.6 mg/dL (0.7-1.3); GFR 41.8; MAGNESIUM 1.9 mg/dL (1.8-2.4); POTASSIUM 4.9 mmol/L (3.5-5.1)
[2020-04-02 02:56] LABS: PROTHROMBIN TIME PATIENT 42.4 SEC (11.7-14.0)
--- NOTE | 2020-04-02 03:13 | RAD ---
Examination: CT head and cervical spine without contrast CT HEAD INDICATION: Reason: FAll on coumadin / Spl. Instructions: / History: COMPARISON: 07/09/2018 Exposure: One or more of the following individualized dose reduction techniques were utilized for this examination: 1. Automated exposure control 2. Adjustment of the mA and/or kV according to patient size 3. Use of iterative reconstruction technique TECHNIQUE: 5 mm contiguous axial images were obtained from the skull base to the vertex in both bone and soft tissue algorithm. FINDINGS: Mild bilateral periventricular white matter hypodensities likely chronic small vessel ischemic disease. No evidence of acute intracranial hemorrhage. No extra-axial fluid collections. No mass effect or midline shift. Ventricular size is appropriate. Basal cisterns are patent. No fractures identified.Amador-white differentiation is preserved.Globes and orbits are within normal limits. Paranasal sinuses and mastoid air cells are clear. IMPRESSION: No acute intracranial findings. CT CERVICAL SPINE INDICATION: Reason: FAll on coumadin / Spl. Instructions: / History: COMPARISON: None Available. Technique: 2.5 mm contiguous axial images were obtained from the skull base through the cervicothoracic junction in both bone and soft tissue algorithm. Additional sagittal and coronal reconstructions were also performed. FINDINGS: Vertebral body height and alignment are maintained. Cervical lordosis is preserved. The lateral masses of C1 are aligned upon C2. No fractures identified. The bony canal is patent throughout. Moderate intervertebral disc height loss identified in the cervical spine particularly at C4-C5, C5-C6, C6-C7 vertebral levels. The paraspinous soft tissues are unremarkable. Visualized intracranial contents are unremarkable. Lung apices are clear. IMPRESSION: 1. No acute fracture of the cervical spine. Correlate clinically. Electronically signed by: Lamine Guzmán MD (04/02/2020 3:11 AM) [id number]
[2020-04-02 03:17] LABS: % BANDS 2 % (0-9); % LYMPHS 10 % (24-48); % MONOS 6 % (0-10); % SEGS 82 % (35-66); NUCLEATED RBC 1; PLT ESTIMATE ADEQUATE (ADEQUATE)
--- NOTE | 2020-04-02 03:56 | RAD ---
EXAM: CHEST 1 VIEW History: Left chest wall pain COMPARISON: 02/22/2019 TECHNIQUE: Single portable radiograph of the chest FINDINGS: Mild cardiomegaly. Left-sided cardiac pacer. The costophrenic sulci are clear and well demarcated. The lungs are clear. IMPRESSION: No radiographic evidence of an acute cardiopulmonary process. Electronically signed by: Lamine Guzmán MD (04/02/2020 3:53 AM) [id number]
[2020-04-02 04:28] LABS: BILIRUBIN,URINE NEGATIVE (NEG); CLARITY,URINE CLOUDY; COLOR,URINE YELLOW; NITRITE,URINE NEGATIVE (NEG); PROTEIN,URINE NEGATIVE (NEG-TRACE); UROBILINOGEN,URINE 0.2 mg/dL (0.2 mg/dL)
[2020-04-02 04:54] LABS: SQUAMOUS EPITHELIAL CELL,UR FEW /LPF
[2020-04-02 04:55] LABS: AMORPHOUS SEDIMENT,UR PRESENT /HPF; BACTERIA,URINE 0 /HPF (0-FEW); RBC,URINE 0 /HPF (0-2); WBC,URINE RARE /HPF (0-4)
[2020-04-02] MEDS ORDERED: LIDO700A21 TP (05:04)
[2020-04-02 06:06] VITALS: BP 166/86
--- NOTE | 2020-04-02 10:49 | EKG ---
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
== END 2020-04-02 06:09 | disposition home or self-care (01) ==
LOC: ER 02:15
DX: S20.212A Contusion of left front wall of thorax, initial encounter (principal); R20.2 Paresthesia of skin; I48.20 Chronic atrial fibrillation, unspecified; F03.90 Unspecified dementia, unspecified severity, without behavioral disturbance, psychotic disturbance, mood disturbance, and anxiety; E78.00 Pure hypercholesterolemia, unspecified; Z90.49 Acquired absence of other specified parts of digestive tract; Z95.0 Presence of cardiac pacemaker; Z98.890 Other specified postprocedural states; Z88.5 Allergy status to narcotic agent; Z88.6 Allergy status to analgesic agent; Z88.8 Allergy status to other drugs, medicaments and biological substances; W06.XXXA Fall from bed, initial encounter; Y93.89 Activity, other specified; Y92.89 Other specified places as the place of occurrence of the external cause; Y99.8 Other external cause status
CPT/HCPCS: 36415; 70450; 71045; 72125; 80048; 81001; 83735; 84484; 85007; 85025; 85610; 93005; 99285